=== PATIENT | male | born 1950 | race Caucasian/White ===

== ENCOUNTER 2023-05-02 10:03 | Outpatient (CLI) | payer MEDICARE, SELFPAY ==
[2023-05-03 21:26] LABS: Testosterone, Adult Male 430 ng/dL (300-720)
== END 2023-05-02 10:04 | disposition home or self-care (01) ==
PROVIDERS: Visit Provider Physician Assistant
DX: C61 Malignant neoplasm of prostate (principal)
CPT/HCPCS: 36415; 72195; 84153; 84403

== ENCOUNTER 2023-08-02 10:00 | Outpatient (RCR) | payer MEDICARE, SELFPAY ==
--- NOTE | 2023-05-04 16:24 | ONC.NURNOTE ---
Dx: Adenocarcinoma of the prostate
--- NOTE | 2023-05-08 11:16 | URNOTE ---
Request received for authorization for Alexander ([id number]). Prior authorization is not required as patient carries [employer] coverage Alexander is not on the Medical Injectable Drug Authorization List and does not require PA.
[2023-05-09 15:06] VITALS: BP 167/95; PULSE 49; RESP 16; TEMP 36.6; O2SAT 93
[2023-05-09] MEDS: LEUPROLIDE ACETATE 22.5 MG (SQ) SYRINGE SUBCUT (15:29)
[2023-08-02 10:11] VITALS: BP 118/80; PULSE 88; RESP 16; TEMP 36.4; O2SAT 89
[2023-08-02] MEDS: LEUPROLIDE ACETATE 22.5 MG (SQ) SYRINGE SUBCUT (10:54)
[2023-08-02 11:14] LABS: PSA Diagnostic* 0.13 ng/mL (0.10-4.00)
[2023-08-04 02:44] LABS: Testosterone, Adult Male <3 ng/dL (300-720)
== END 2023-11-05 23:59 | disposition home or self-care (01) ==
LOC: CCIC 10:00
PROVIDERS: Internal Medicine; Visit Provider Clinical Nurse Specialist
DX: C61 Malignant neoplasm of prostate (principal)
CPT/HCPCS: 36415; 84153; 84403; 96401; J9217